=== PATIENT | female | born 1980 | race Caucasian/White ===

== ENCOUNTER 2022-01-03 20:59 | Emergency (ER) | payer OTHER ==
[~2022-01-03] VITALS: Ht 160 cm; Wt 63.5 kg
[2022-01-03] MEDS ORDERED: GABA600T12 PO (22:26)
[2022-01-03] MEDS ORDERED: ATOR20TA PO (22:26)
[2022-01-03] MEDS ORDERED: CLON0.5T4 PO (22:26)
[2022-01-03] MEDS ORDERED: SERT100T PO (22:26)
[2022-01-03] MEDS ORDERED: ASPI81TA31 PO (22:26)
--- NOTE | 2022-01-03 22:40 | NUR ---
DR CAGE AT BEDSIDE FOR MSE.
[2022-01-03] MEDS ORDERED: HYDR-4209 PO (22:49)
[2022-01-03] MEDS ORDERED: ONDA4TAB5 PO (22:49)
[2022-01-03] MEDS ORDERED: HYDROCODONE/APAP 10-325 MG TABLET PO ONE (23:00)
[2022-01-03] MEDS ORDERED: ONDANSETRON ODT 4 MG TAB.RAPDIS SL ONE (23:00)
[2022-01-03] MEDS ORDERED: HYDROCODONE/APAP 10-325 MG TABLET ONE (23:18)
[2022-01-03] MEDS ORDERED: ONDANSETRON HCL 4 MG TABLET ONE (23:19)
--- NOTE | 2022-01-03 23:21 | NUR ---
Pt verbalized slight improvement in headache to 4/10 now. Unable to re-assess in [facility] because pt wants to go home now.
--- NOTE | 2022-01-03 23:22 | NUR ---
Patient has been cleared for DC by [facility]. Written and verbal after care instructions given, including prescriptions. Patient verbalizes understanding of instructions. Stressed follow up or return to ER for worsening s/s. Ambulated out of ED in steady gait. Pt verbalized that she will get a ride service to go home, emphasized importance of not driving home due to medications given.
[2022-01-03 23:24] VITALS: BP 116/70
== END 2022-01-03 23:25 | disposition home or self-care (01) ==
LOC: ER 21:05
DX: R51.9 Headache, unspecified (principal); Z82.3 Family history of stroke
CPT/HCPCS: A4663; Q0162

== ENCOUNTER 2022-03-17 17:42 | Emergency (ER) | payer OTHER ==
[~2022-03-17] VITALS: Ht 160 cm; Wt 64.4 kg
[~2022-03-17 17:42] MED LIST: ASPI81TA31 PO; ATOR20TA PO; CLON0.5T4 PO; GABA600T12 PO; HYDR-4209 PO; ONDA4TAB5 PO; SERT100T PO
--- NOTE | 2022-03-17 18:00 | NUR ---
Patient ambulatory, alert and oriented x4 complaints of chills, nausea, sharp abdominal pain 6/10 started yesterday. No episodes of diarrhea, no chest pain. Vitals stable.
--- NOTE | 2022-03-17 18:02 | NUR ---
MD at bedside, medical screening exam in process.
--- NOTE | 2022-03-17 18:05 | NUR ---
UA, covid specimen sent to lab.
[2022-03-17] MEDS ORDERED: MAG HYDROX/AL HYDROX/SIMETH 30 ML LIQUID UDC PO ONE (18:15)
[2022-03-17] MEDS ORDERED: IV NORMAL SALINE 1000 ML BAG IV ONE (18:15)
[2022-03-17] MEDS ORDERED: FAMOTIDINE. 20 MG/2 ML VIAL IV ONE ×2 (18:15→18:30)
[2022-03-17] MEDS ORDERED: MAG HYDROX/AL HYDROX/SIMETH 30 ML LIQUID UDC ONE (18:29)
[2022-03-17] MEDS ORDERED: ONDANSETRON 4 MG/2 ML VIAL IV ONE (18:45)
[2022-03-17] MEDS ORDERED: DICYCLOMINE HCL LIQ 10 MG/5 ML UDC PO ONE (18:45)
[2022-03-17] MEDS ORDERED: ONDANSETRON 4 MG/2 ML VIAL ONE (18:52)
[2022-03-17 18:53] LABS: HEMATOCRIT 42.4 % (31.2-41.9); MEAN CORPUSCULAR HEMOGLOBIN 32.2 uug (24.7-32.8); MEAN CORPUSCULAR VOLUME 92.3 fL (75.5-95.3); PLATELET COUNT (AUTO) 280 K/uL (179-408)
[2022-03-17] MEDS ORDERED: DICYCLOMINE HCL LIQ 10 MG/5 ML UDC ONE (18:53)
[2022-03-17 18:55] LABS: *BILIRUBIN,URIN NEGATIVE (NEGATIVE); *BLOOD, URINE NEGATIVE (NEGATIVE); *CLARITY,URINE CLEAR (CLEAR); *COLOR,URINE YELLOW (YELLOW); *KETONES,URINE NEGATIVE (NEGATIVE); *UROBILINOGEN,URINE 0.2 E.U./dl (NORMAL); LEUKOCYTE ESTERASE ,URINE NEGATIVE (NEGATIVE); NITRITE, URINE NEGATIVE (NEGATIVE); UGLUCOSE NEGATIVE (NEGATIVE)
--- NOTE | 2022-03-17 19:00 | NUR ---
RECEIVED REPORT FROM GUNNAR LINDSAY. PT NOTED TO BE IN BED, AWAKE AND USING HER PERSONAL CELL PHONE. DENIES ANY PAIN/DISCOMFORT AT THIS TIME.
[2022-03-17 19:02] LABS: CREATININE 0.8 mg/dL (0.6-1.3)
[2022-03-17 19:09] LABS: *URINE HCG, QUAL NEG (NEGATIVE)
[2022-03-17 19:21] LABS: BILIRUBIN,DIRECT 0.2 mg/dL (0.0-0.2); BILIRUBIN,TOTAL 0.5 mg/dL (0.2-1.0); TOTAL PROTEIN, SERUM 7.7 g/dL (6.4-8.2)
--- NOTE | 2022-03-17 19:35 | NUR ---
PT AMBULATED TO RESTROOM, STEADY GAIT. DENIES ANY RIOS/DIZZYNESS.
--- NOTE | 2022-03-17 19:47 | NUR ---
US (KETAN) AT BEDSIDE.
--- NOTE | 2022-03-17 20:09 | NUR ---
JOCELYN ACEVES FOR ULTRASOUND.
[2022-03-17] MEDS ORDERED: ONDA4TAB5 PO (20:19)
[2022-03-17] MEDS ORDERED: HYDR-4209 PO (20:19)
[2022-03-17] MEDS ORDERED: OXYCODONE/APAP 5-325 MG TABLET ONE (20:34)
--- NOTE | 2022-03-17 20:44 | NUR ---
Patient discharged to home in stable condition. Written and verbal after care instructions given. Patient verbalizes understanding of instructions. Stressed follow up or return to ER for worsening s/s. Steady gait, denies any RIOS/dizziness. No n/v/d. Denies any pain/discomfort upon discharge. IV removed. Picked up by friend.
[2022-03-17 20:45] VITALS: BP 112/83
[2022-03-17] MEDS ORDERED: OXYCODONE/APAP 5-325 MG TABLET PO ONE (20:45)
[2022-03-18] MEDS ORDERED: MAGN296S72 GT (14:28)
[2022-03-18] MEDS ORDERED: SENN-86 PO (14:31)
[2022-03-18] MEDS ORDERED: POLY119P3 PO (14:31)
== END 2022-03-17 20:46 | disposition home or self-care (01) ==
LOC: ER 17:44
DX: R10.30 Lower abdominal pain, unspecified (principal); R10.2 Pelvic and perineal pain; R68.83 Chills (without fever); Z20.822 Contact with and (suspected) exposure to COVID-19; F41.9 Anxiety disorder, unspecified; I99.9 Unspecified disorder of circulatory system
CPT/HCPCS: 36415; 76700; 76856; 80048; 80076; 81003; 83690; 84703; 85025; 87426; 96361; 96374; 96375; 99285; J2405; J3490; A4663; J7040

== ENCOUNTER 2022-03-18 13:17 | Emergency (ER) | payer OTHER ==
[~2022-03-18] VITALS: Ht 160 cm; Wt 64.9 kg
[2022-03-18] MEDS ORDERED: SENNOSIDES/DOCUSATE SODIUM TABLET PO STA (14:10)
[2022-03-18] MEDS ORDERED: MIRALAX 17 GM POWD.PACK PO ONE (14:15)
[2022-03-18] MEDS ORDERED: MIRALAX 17 GM POWD.PACK ONE (14:22)
[2022-03-18] MEDS ORDERED: MAGN296S72 GT (14:28)
[2022-03-18] MEDS ORDERED: POLY119P3 PO (14:31)
[2022-03-18] MEDS ORDERED: SENN-86 PO (14:31)
--- NOTE | 2022-03-18 15:00 | NUR ---
PT WAS EVALUATED BY DR FERRELL. PT WAS D/C'd TO HOME . D/C INSTRUCTIONS GIVEN TO THE PT BY DR FERRELL.
[2022-03-18 15:01] VITALS: BP 129/77
== END 2022-03-18 15:02 | disposition home or self-care (01) ==
LOC: ER 13:20
DX: K59.00 Constipation, unspecified (principal); F41.9 Anxiety disorder, unspecified; I99.9 Unspecified disorder of circulatory system; Z79.899 Other long term (current) drug therapy
CPT/HCPCS: A4663

== ENCOUNTER 2023-08-18 03:21 | Emergency (ER) | payer MEDICAID, OTHER ==
[~2023-08-18] VITALS: Ht 160 cm; Wt 65.8 kg
[~2023-08-18 03:21] MED LIST changes: +MAGN296S72 GT; +POLY119P3 PO; +SENN-86 PO
[2023-08-18] MEDS ORDERED: diphenhydrAMINE 25 MG CAP PO ONE ×2 (04:00→04:14)
[2023-08-18 05:11] VITALS: BP 125/72; TEMP 98; O2SAT 98
== END 2023-08-18 05:12 | disposition home or self-care (01) ==
LOC: ER 03:23
DX: R00.2 Palpitations (principal); T50.905A Adverse effect of unspecified drugs, medicaments and biological substances, initial encounter; Z79.82 Long term (current) use of aspirin; Z79.899 Other long term (current) drug therapy; Y92.89 Other specified places as the place of occurrence of the external cause
CPT/HCPCS: 99282; Q0163; A4663

== ENCOUNTER 2023-10-31 20:28 | Emergency (ER) | payer OTHER | END 2023-10-31 22:10 | disposition left against medical advice (07) | LOC: ER 20:37 | DX: Z53.21 Procedure and treatment not carried out due to patient leaving prior to being seen by health care provider (principal) ==